=== PATIENT | female | born 1970 ===

== ENCOUNTER 2020-05-02 05:22 | Emergency (ER) | payer MEDICAID ==
[2020-05-02] MEDS ORDERED: Lidocaine 2% Viscous Solution 15 ML Cup PO ONE (05:35)
[2020-05-02] MEDS ORDERED: Acetaminophen 500 MG Tab PO ONE (05:56)
[2020-05-02] MEDS ORDERED: Ibuprofen 800 MG Tab PO ONE (05:56)
--- NOTE | 2020-05-02 06:01 | EDM.PDOC ---
ED HPI GENERAL MEDICAL PROBLEM - General Stated Complaint: TOOTHACHE Time Seen by Provider: 05/02/20 06:00 Source of Information: Reports: Patient History Limitations: Reports: No Limitations - History of Present Illness INITIAL COMMENTS - FREE TEXT/NARRATIVE: Patient presented to the ED because of dental pain which started yesterday. The pain is 8/10, over the right upper molar. she took aspirin which didn't help much. - Related Data Home Meds: Home Meds Amoxicillin 875 mg PO BID #20 tablet 05/02/20 [Rx] Ibuprofen 800 mg PO Q8H PRN #30 tablet 05/02/20 [Rx] ED ROS ENT - Review of Systems Review Of Systems: See Below Constitutional: Reports: No Symptoms HEENT: Reports: Dental Pain Respiratory: Reports: No Symptoms Cardiovascular: Reports: No Symptoms Endocrine: Reports: No Symptoms GI/Abdominal: Reports: No Symptoms : Reports: No Symptoms Musculoskeletal: Reports: No Symptoms Skin: Reports: No Symptoms Neurological: Reports: No Symptoms Psychiatric: Reports: No Symptoms ED EXAM, ENT - Physical Exam Exam: See Below General Appearance: Alert, No Apparent Distress Eye Exam: Bilateral Eye: PERRL Ears: Normal External Exam, Normal Canal Nose: Normal Inspection, Normal Mucousa, No Blood Mouth/Throat: Normal Inspection, Normal Gums, Dental Pain, Dental Tenderness, Gum Swelling Head: Atraumatic, Normocephalic Neck: Normal Inspection, Supple, Non-Tender, Full Range of Motion Respiratory/Chest: No Respiratory Distress, Lungs Clear, Normal Breath Sounds Cardiovascular: Normal Peripheral Pulses, Regular Rate, Rhythm GI/Abdominal: Normal Bowel Sounds, Soft, Non-Tender, No Organomegaly Rectal (Female) Exam: Normal Exam Course - Vital Signs Text/Narrative:: Ibuprofen 800 mg PO x1 TYlenl 1000 mg po x1 Viscous lidocaine - Orders/Labs/Meds Meds: Medications Discontinued Medications Generic Name Dose Route Start Last Admin Trade Name Freq PRN Reason Stop Dose Admin Acetaminophen 1,000 mg 05/02/20 05:56 05/02/20 06:03 Tylenol Extra Strength PO 05/02/20 05:57 1,000 mg ONETIME ONE Administration Ibuprofen 800 mg 05/02/20 05:56 05/02/20 06:04 Motrin PO 05/02/20 05:57 800 mg ONETIME ONE Administration Lidocaine HCl 30 ml 05/02/20 05:35 05/02/20 06:04 Xylocaine 2% Viscous PO 05/02/20 05:36 30 ml ONETIME ONE Administration Departure - Departure Time of Disposition: 06:00 Disposition: Home, Self-Care 01 Condition: Good Clinical Impression: Chronic dental pain, Dental infection - Discharge Information Prescriptions: Amoxicillin 875 mg PO BID #20 tablet Ibuprofen 800 mg PO Q8H PRN #30 tablet PRN Reason: Pain Instructions: Dental Abscess, [id number], Benzocaine mouth gel, ointment, solution, or dental paste Referrals: PCP,None [Primary Care Provider] - Additional Instructions: Please read discharge instructions on dental infection and dental pain Gurgle with salt and water Take ibuprofen 800 mg with tylenol 1000 mg every 8 hours as needed for pain. Take them both at the same time for better pain relief. Apply viscous lidocaine for pain that you can't tolerate Amoxicillin 875 mg twice daily for 10 days Follow up with your dentist as soon as you can.
== END 2020-05-02 06:20 | disposition home or self-care (01) ==
LOC: FB.ED 05:22
DX: K04.7 Periapical abscess without sinus (principal)
CPT/HCPCS: 99282; A9270